=== PATIENT | female | born 1980 | race Caucasian/White ===

== ENCOUNTER 2016-06-08 08:43 | Emergency (ER) | payer BC ==
--- NOTE | 2016-06-08 09:40 | ERRECORD ---
[facility] EMERGENCY RECORD HPI SHOULDER (09:09 DHA) CHIEF COMPLAINT: Patient presents for evaluation of pain, to the right shoulder. HISTORIAN: History provided by patient. MECHANISM OF INJURY: Unknown mechanism. LOCATION: Symptoms are localized, most severe to the just beneath the tip of the acromion, on the right. QUALITY: Pain is dull in nature, described as aching. SEVERITY: Current severity of pain rated as 7/10. TIME COURSE: Sudden onset of symptoms, 30, hours prior to arrival, There has been no change in the patient's symptoms over time, awoke with the pain 24 hours ago. ASSOCIATED WITH: No associated clavicle pain, No associated coolness to touch, Associated with decreased range of motion, to the right shoulder, Associated with decreased use, No associated distal injury, No associated distal neuro complaint, No associated elbow pain, No associated erythema, No associated fever, No associated finger pain, No associated hand pain, No associated proximal injury, No associated open wounds, No associated swelling, No associated warmth, No associated wrist pain, No associated weakness distal to injury. EXACERBATED BY: Patient's condition exacerbated by movement, Patient's condition relieved by nothing because patient has not tried anything for relief. RELIEVED BY: Patient's condition relieved by remaining still. ROS (09:11 DHA) CONSTITUTIONAL: Historian denies chills, denies fever. CARDIOVASCULAR: Historian denies chest pain, no radiation, Historian denies dyspnea on exertion, denies edema, denies exercise intolerance, denies syncope, denies palpitations. RESPIRATORY: Historian denies cough, denies shortness of breath, denies sputum. GI: Historian denies abdominal pain, denies appetite changes, denies diarrhea, denies nausea, denies vomiting. GENITOURINARY FEMALE: Historian denies dysuria, denies frequency, denies urgency. MUSCULOSKELETAL: Historian reports arthralgias, denies back pain, denies deformity, denies fall, denies injury, denies joint redness, denies joint stiffness, denies joint swelling, denies neck pain. SKIN: Historian denies pruritis, denies rash, denies skin changes. NEUROLOGIC: Historian denies focal weakness, denies headache, denies paralysis, denies paresthesias, denies sensory changes. HEMO/LYMPHATIC: Historian denies abnormal blood clotting, denies easy bruising. PAST MEDICAL HISTORY MEDICAL HISTORY: No past medical history. (08:51 LGIB) &a-1R&a+25V*p+0X*i3602P*c202B*c15G*c2P*p-0X&a-25V&a+1R Name: Marybeth Torre : 1980 F35 MedRec: [id number] AcctNum: [id number] Prepared: MonJun 08, 2016 09:38 by Interface Page 1 of 3 pMD [facility] EMERGENCY RECORD FEMALE SURGICAL HISTORY: Patient has no surgical history. (08:51 LGIB) PSYCHIATRIC HISTORY: Psychiatric history includes. (08:51 LGIB) Psychiatric history includes, depression. (09:26 DHAM) SOCIAL HISTORY: Patient denies alcohol use, Patient denies drug use, Patient has no smoking history. (08:51 LGIB) NOTES: I have reviewed the nursing documentation regarding PMHX, social hx, family hx, and surgical history as well as vitals and triage notes and agree. (09:27 DHAM) KNOWN ALLERGIES Lexapro CURRENT MEDICATIONS (08:52 LGIB) None VITAL SIGNS VITAL SIGNS: BP: 108/72, Pulse: 80, Resp: 16 (Non-Labored), Pain: 7, O2 sat: 100 on Room Air, Time: 06/08/2016 08:51. (08:51 LGIB) Temp: 98.3 (Oral), Time: 06/08/2016 08:54. (08:54 LGIB) PHYSICAL EXAM (09:12 DHAM) CONSTITUTIONAL: Vital Signs Reviewed, Patient afebrile, Pulse normal, Blood pressure normal, Respiratory rate normal, Patient appears non toxic, Patient appears, in mild pain distress, Patient alert and oriented to person, place and time, Nursing notes reviewed. HEAD: Head exam included findings of head atraumatic, normocephalic. EYES: Eye exam included findings of eyelids normal to inspection, Pupils equally round and reactive to light, Extraocular muscles intact, Conjunctiva normal. NECK: Neck exam included findings of normal range of motion, Trachea midline, Thyroid normal, no carotid bruits, no meningeal signs, no cervical adenopathy, no tenderness. RESPIRATORY CHEST: Respiratory exam included findings of no respiratory distress, Breath sounds clear, No wheezing, No rales, No rhonchi. CARDIOVASCULAR: Cardiovascular exam included findings of heart rate regular rate and rhythm, Heart sounds normal, normal S1, normal S2, no murmurs, no rub, no gallop. ABDOMEN FEMALE: Abdominal exam included findings of abdomen nontender, Bowel sounds normal, Liver with, Splenomegaly present, no distension, no pulsatile masses, no peritoneal signs. UPPER EXTREMITY: Pt has a normal pain free rom of left shoulder, bilat elbows and wrists and phalanges. Her only area of pain appears to be the right shoulder. she is tender just beneath the &a-1R&a+25V*p+0X*t4924A*c202B*c15G*c2P*p-0X&a-25V&a+1R Name: Marybeth Torre : 1980 F35 MedRec: [id number] AcctNum: [id number] Prepared: MonJun 08, 2016 09:38 by Interface Page 2 of 3 pMD [facility] EMERGENCY RECORD tip of the right acromion. biceps short and long head are non-tender. deltoid and triceps are non-tender. normal dtr's at the biceps and triceps and brachioradialis. normal sensation in all dermatomes. Neer is markedly positive as is Thompson empty and full can tests. cross shoulder reaching is positive as well. spurlings is neg in each direction. motor strength is normal in all muscle groups. NEURO: Lockhart coma scale 15, Neuro exam findings include patient oriented to person, place and time, Speech normal, Gait normal, Memory normal, Cranial nerves intact, Deep tendon reflexes normal, no focal motor deficits, no focal sensory deficits. SKIN: Skin exam included findings of skin warm, dry, and normal in color, no rash. LYMPHATIC: Lymphatic exam normal. PSYCHIATRIC: Psychiatric exam included findings of patient oriented to person place and time, Normal affect, Judgment normal, Insight normal, Remote memory normal, Recent memory normal, Concentration normal. DOCTOR NOTES (09:31 DHAM) TEXT: Pt does routinely work out with weights and she enjoys overhead press and bench press with free weights. does not recall a specific injury. pain is most marked with right shoulder ABduction close to 90 degrees. I do not suspect pulmonary, GI or Cardiac etiology based on hx and PE and further w/u in these areas does not appear warranted at this point. PROBLEM LIST No recorded problems DIAGNOSIS (09:18 [facility]) FINAL: PRIMARY: right shoulder impingment syndrome. PRESCRIPTION No recorded prescriptions DISPOSITION PATIENT: Disposition Type: Discharge, Disposition: *Discharge Home. (09:18 [facility]) Patient left the department. (09:32 IB) Smalls: ROSELINE=MD Linda, Rakan LGIB=DINH Goncalves, Erika &a-1R&a+25V*p+0X*[id number]*c202B*c15G*c2P*p-0X&a-25V&a+1R Name: Bernabejorgejessica Marybeth Ruthy : 1980 F35 MedRec: [id number] AcctNum: [id number] Prepared: MonJun 08, 2016 09:38 by Interface Page 3 of 3 pMD MTDD
--- NOTE | 2016-06-08 09:47 | PICIS ---
[facility] EMERGENCY RECORD TRIAGE (MonJun 08, 2016 08:50 LGIB) TRIAGE NOTES: PT WOKE UP WITH RIGHT SHOULDER PAIN YESTERDAY. DENIES INJURY. (MonJun 08, 2016 08:50 LGIB) PATIENT: NAME: Marybeth Torre, AGE: 35, GENDER: female, : [facility] 1980, TIME OF GREET: MonJun 08, 2016 08:44, PREFERRED LANGUAGE: Gibraltarian, ETHNICITY: Not or , ECODE BILLING MAP: [facility], SSN: [id number], Zip Code: [address], KG WEIGHT: 52.16, PHONE: , , , PERSON ID: [id number], PAYMENT: [employer], PCP: SOFIA. (MonJun 08, 2016 08:50 LGIB) COMPLAINT: RIGHT SHOULDER PAIN. (MonJun 08, 2016 08:50 LGIB) ADMISSION: URGENCY: 4 Non Urgent, ADMISSION SOURCE: Home, TRANSPORT: CAR, BED: ER -02. (MonJun 08, 2016 08:50 LGIB) SIRS SCORING: Heart Rate 55-109 (0), Temp range 96.8-101.1 (0), respiratory rate 12-24 (0), Mental Status altered: no (0), Total SIRS Score 0. (08:51 LGIB) LMP: Last menstrual period: 06/02/2016. (08:51 LGIB) TREATMENTS IN PROGRESS: Treatments given Prehospital: [facility] 0530. (08:51 LGIB) PROVIDERS: TRIAGE NURSE: Erika Goncalves RN. (MonJun 08, 2016 08:50 LGIB) PREVIOUS VISIT ALLERGIES: No Known Drug Allergies. (MonJun 08, 2016 08:50 LGIB) No Known Drug Allergies. (08:51 LGIB) KNOWN ALLERGIES Lexapro CURRENT MEDICATIONS (08:52 LGIB) None VITAL SIGNS VITAL SIGNS: BP: 108/72, Pulse: 80, Resp: 16 (Non-Labored), Pain: 7, O2 sat: 100 on Room Air, Time: 06/08/2016 08:51. (08:51 LGIB) Temp: 98.3 (Oral), Time: 06/08/2016 08:54. (08:54 LGIB) NURSING ASSESSMENT: EXTREMITY UPPER (08:55 LGIB) CONSTITUTIONAL: Complex assessment performed, Patient arrives ambulatory, Gait steady, History obtained from patient, Patient appears comfortable, Patient cooperative, Patient alert, Oriented to person, place and time, Skin warm, Skin dry, Skin normal in color, Mucous membranes pink, Mucous membranes moist, Patient is well-groomed, Patient complains of RIGHT SHOULDER PAIN. PAIN: aching pain, to the right shoulder, on a scale 0-10 patient rates pain as 7, PAIN WORSE ON MOVEMENT. LEFT UPPER EXTREMITY: Left upper extremity assessment findings include capillary refill less than 2 seconds, Skin color normal to hand, Skin temperature to hand warm, Distal sensation intact, Muscle tone normal, radial pulse is +3. &a-1R&a+25V*p+0X*s7335Y*c202B*c15G*c2P*p-0X&a-25V&a+1R Name: Marybeth Torre : 1980 F35 MedRec: [id number] AcctNum: [id number] Prepared: MonJun 08, 2016 09:45 by Interface Page 1 of 5 pMD [facility] EMERGENCY RECORD RIGHT UPPER EXTREMITY: Right upper extremity assessment findings include capillary refill less than 2 seconds, Skin color normal to hand, Skin temperature to hand warm, Distal sensation intact, Muscle tone normal, radial pulse is +3. NURSING PROCEDURE: DISCHARGE NOTE (09:24 LSMI) DISCHARGE: Patient discharged to home, ambulating without assistance, driving self, unaccompanied, Summary of Care printed/ provided, Transition record given to patient, Discharge instructions given to patient, Above person(s) verbalized understanding of discharge instructions and follow-up care, Patient treated and evaluated by physician. HPI SHOULDER (09:09 [facility]) CHIEF COMPLAINT: Patient presents for evaluation of pain, to the right shoulder. HISTORIAN: History provided by patient. MECHANISM OF INJURY: Unknown mechanism. LOCATION: Symptoms are localized, most severe to the just beneath the tip of the acromion, on the right. QUALITY: Pain is dull in nature, described as aching. SEVERITY: Current severity of pain rated as 7/10. TIME COURSE: Sudden onset of symptoms, 30, hours prior to arrival, There has been no change in the patient's symptoms over time, awoke with the pain 24 hours ago. ASSOCIATED WITH: No associated clavicle pain, No associated coolness to touch, Associated with decreased range of motion, to the right shoulder, Associated with decreased use, No associated distal injury, No associated distal neuro complaint, No associated elbow pain, No associated erythema, No associated fever, No associated finger pain, No associated hand pain, No associated proximal injury, No associated open wounds, No associated swelling, No associated warmth, No associated wrist pain, No associated weakness distal to injury. EXACERBATED BY: Patient's condition exacerbated by movement, Patient's condition relieved by nothing because patient has not tried anything for relief. RELIEVED BY: Patient's condition relieved by remaining still. ROS (09:11 DHAM) CONSTITUTIONAL: Historian denies chills, denies fever. CARDIOVASCULAR: Historian denies chest pain, no radiation, Historian denies dyspnea on exertion, denies edema, denies exercise intolerance, denies syncope, denies palpitations. RESPIRATORY: Historian denies cough, denies shortness of breath, denies sputum. GI: Historian denies abdominal pain, denies appetite changes, denies diarrhea, denies nausea, denies vomiting. GENITOURINARY FEMALE: Historian denies dysuria, denies frequency, denies urgency. &a-1R&a+25V*p+0X*p4613H*c202B*c15G*c2P*p-0X&a-25V&a+1R Name: Marybeth Torre : 1980 F35 MedRec: [id number] AcctNum: [id number] Prepared: MonJun 08, 2016 09:45 by Interface Page 2 of 5 pMD [facility] EMERGENCY RECORD MUSCULOSKELETAL: Historian reports arthralgias, denies back pain, denies deformity, denies fall, denies injury, denies joint redness, denies joint stiffness, denies joint swelling, denies neck pain. SKIN: Historian denies pruritis, denies rash, denies skin changes. NEUROLOGIC: Historian denies focal weakness, denies headache, denies paralysis, denies paresthesias, denies sensory changes. HEMO/LYMPHATIC: Historian denies abnormal blood clotting, denies easy bruising. PAST MEDICAL HISTORY MEDICAL HISTORY: No past medical history. (08:51 LGIB) FEMALE SURGICAL HISTORY: Patient has no surgical history. (08:51 LGIB) PSYCHIATRIC HISTORY: Psychiatric history includes. (08:51 LGIB) Psychiatric history includes, depression. (09:26 DHAM) SOCIAL HISTORY: Patient denies alcohol use, Patient denies drug use, Patient has no smoking history. (08:51 LGIB) NOTES: I have reviewed the nursing documentation regarding PMHX, social hx, family hx, and surgical history as well as vitals and triage notes and agree. (09:27 DHAM) PHYSICAL EXAM (09:12 DHAM) CONSTITUTIONAL: Vital Signs Reviewed, Patient afebrile, Pulse normal, Blood pressure normal, Respiratory rate normal, Patient appears non toxic, Patient appears, in mild pain distress, Patient alert and oriented to person, place and time, Nursing notes reviewed. HEAD: Head exam included findings of head atraumatic, normocephalic. EYES: Eye exam included findings of eyelids normal to inspection, Pupils equally round and reactive to light, Extraocular muscles intact, Conjunctiva normal. NECK: Neck exam included findings of normal range of motion, Trachea midline, Thyroid normal, no carotid bruits, no meningeal signs, no cervical adenopathy, no tenderness. RESPIRATORY CHEST: Respiratory exam included findings of no respiratory distress, Breath sounds clear, No wheezing, No rales, No rhonchi. CARDIOVASCULAR: Cardiovascular exam included findings of heart rate regular rate and rhythm, Heart sounds normal, normal S1, normal S2, no murmurs, no rub, no gallop. ABDOMEN FEMALE: Abdominal exam included findings of abdomen nontender, Bowel sounds normal, Liver with, Splenomegaly present, no distension, no pulsatile masses, no peritoneal signs. UPPER EXTREMITY: Pt has a normal pain free rom of left &a-1R&a+25V*p+0X*y0252H*c202B*c15G*c2P*p-0X&a-25V&a+1R Name: Marybeth Torre : 1980 F35 MedRec: [id number] AcctNum: [id number] Prepared: Wed Jun 08, 2016 09:45 by Interface Page 3 of 5 pMD [facility] EMERGENCY RECORD shoulder, bilat elbows and wrists and phalanges. Her only area of pain appears to be the right shoulder. she is tender just beneath the tip of the right acromion. biceps short and long head are non-tender. deltoid and triceps are non-tender. normal dtr's at the biceps and triceps and brachioradialis. normal sensation in all dermatomes. Neer is markedly positive as is Thompson empty and full can tests. cross shoulder reaching is positive as well. spurlings is neg in each direction. motor strength is normal in all muscle groups. NEURO: Layx coma scale 15, Neuro exam findings include patient oriented to person, place and time, Speech normal, Gait normal, Memory normal, Cranial nerves intact, Deep tendon reflexes normal, no focal motor deficits, no focal sensory deficits. SKIN: Skin exam included findings of skin warm, dry, and normal in color, no rash. LYMPHATIC: Lymphatic exam normal. PSYCHIATRIC: Psychiatric exam included findings of patient oriented to person place and time, Normal affect, Judgment normal, Insight normal, Remote memory normal, Recent memory normal, Concentration normal. EVENTS TRANSFER: Triage to Emergency Emergency Room -02. (MonJun 08, 2016 08:50 LGIB) Removed from Emergency Emergency Room -02. (09:32 LGIB) O2SAT INTERPRETATION (09:18 DHAM) O2SAT: Single pulse oximetry, Oxygen saturation 100%, on room air, Oxygen saturation interpretation: Normal, No intervention required. DOCTOR NOTES (09:31 DHAM) TEXT: Pt does routinely work out with weights and she enjoys overhead press and bench press with free weights. does not recall a specific injury. pain is most marked with right shoulder ABduction close to 90 degrees. I do not suspect pulmonary, GI or Cardiac etiology based on hx and PE and further w/u in these areas does not appear warranted at this point. PROBLEM LIST No recorded problems DIAGNOSIS (09:18 DHAM) FINAL: PRIMARY: right shoulder impingment syndrome. DISPOSITION PATIENT: Disposition Type: Discharge, Disposition: *Discharge Home. (09:18 DHAM) Patient left the department. (09:32 LGIB) INSTRUCTION (09:20 DHAM) &a-1R&a+25V*p+0X*l1211U*c202B*c15G*c2P*p-0X&a-25V&a+1R Name: Marybeth Trore : 1980 F35 MedRec: [id number] AcctNum: [id number] Prepared: MonJun 08, 2016 09:45 by Interface Page 4 of 5 pMD [facility] EMERGENCY RECORD DISCHARGE: IMPINGEMENT SYNDROME SHOULDER. SPECIAL: Aleve 2 twice a day for several days Exercises as demonstrated for internal and external rotators. Avoid overhead activities or lifting weights overhead for several weeks. Consider xrays if your pain is not improved over the next week and return for any concerns or worsening. PRESCRIPTION No recorded prescriptions IMAGING (09:32 [facility]) *DISCHARGE INSTRUCTIONS RECEIPT: Image captured from scanner. ADMIN (09:36 [facility]) DIGITAL SIGNATURE: MD Mckeon Darren. Smalls: ROSELINE=MD Mckeon Darren LGIB=DINH Goncalves Lauren LSMI=DWAYNE Estes Leah &a-1R&a+25V*p+0X*n8283T*c202B*c15G*c2P*p-0X&a-25V&a+1R Name: Marybeth Torre : 1980 F35 MedRec: [id number] AcctNum: [id number] Prepared: MonJun 08, 2016 09:45 by Interface Page 5 of 5 pMD MTDD
== END 2016-06-08 09:24 | disposition home or self-care (01) ==
LOC: BURERS 08:43
DX: M75.41 Impingement syndrome of right shoulder (principal); F32.9 Major depressive disorder, single episode, unspecified
CPT/HCPCS: 99283

== ENCOUNTER 2018-03-01 14:27 | Emergency (ER) | payer BC, SELFPAY ==
[2018-03-01] MEDS ORDERED: Ketorolac Tromethamine 30 MG/ML VIAL ONE (14:34)
--- NOTE | 2018-03-01 18:34 | RAD ---
RIGHT WRIST THREE VIEWS: 03/01/18 No fracture or carpal abnormality was seen. All bones appeared intact. The carpal relationships seem normal. IMPRESSION: No acute findings. POS: HOME
--- NOTE | 2018-03-01 18:35 | RAD ---
LEFT WRIST THREE VIEWS: 03/01/18 Films were compared with those of the right wrist. No fracture, dislocation, or acute bony change was seen. The carpals appear normal. IMPRESSION: No acute findings. POS: HOME
--- NOTE | 2018-03-01 18:36 | RAD ---
LEFT HAND THREE VIEWS: 03/01/18 No fracture or acute bony change was seen. Carpal relationships seem normal. IMPRESSION: No acute bony findings. POS: HOME
--- NOTE | 2018-03-01 18:41 | RAD ---
RIGHT HAND THREE VIEWS: 03/01/18 No fracture was seen. The bony structures appear intact. There may be some air in the soft tissues of the hand, particularly around the thenar area. IMPRESSION: No acute bony findings. Possible air in soft tissues. POS: HOME
== END 2018-03-01 16:12 | disposition home or self-care (01) ==
LOC: BURERS 14:27
DX: S51.852A Open bite of left forearm, initial encounter (principal); S61.411A Laceration without foreign body of right hand, initial encounter; F31.9 Bipolar disorder, unspecified; W54.0XXA Bitten by dog, initial encounter
CPT/HCPCS: 96372; J1885